=== PATIENT | male | born 1985 ===

== ENCOUNTER 2023-03-04 16:42 | Emergency (ER) | payer MEDICAID ==
[~2023-03-04] VITALS: Ht 167.6 cm; Wt 61.0 kg
[2023-03-04 17:34] LABS: BASOPHILS # (AUTO) 0.1 X10'3 (0-0.2); BASOPHILS % (AUTO) 0.9 % (0-1); EOSINOPHILS # (AUTO) 0.3 X10'3 (0-0.9); EOSINOPHILS % (AUTO) 3.3 % (0-6); HEMATOCRIT 45.7 % (42.0-52.0); HEMOGLOBIN 15.7 g/dl (14.0-17.9); LYMPHOCYTES # (AUTO) 2.5 X10'3 (1.1-4.8); LYMPHOCYTES % (AUTO) 27.4 % (21-51); MEAN CORPUSCULAR HEMOGLOBIN 33.2 PG (27.0-31.0); MEAN CORPUSCULAR HGB CONC 34.3 g/dL (33.0-36.5); MEAN CORPUSCULAR VOLUME 96.9 FL (78-98); MEAN PLATELET VOLUME 8.1 FL (7.4-10.4); MONOCYTES # (AUTO) 1.3 X10'3 (0-0.9); MONOCYTES % (AUTO) 14.1 % (2-12); NEUTROPHILS # (AUTO) 4.9 X10'3 (1.8-7.7); NEUTROPHILS % (AUTO) 54.3 % (42-75); PLATELET COUNT 266 X10'3 (140-440); RED BLOOD COUNT 4.72 X10'6 (4.70-6.10); RED CELL DISTRIBUTION WIDTH 13.6 % (11.5-14.5)
[2023-03-04 17:41] LABS: ALANINE AMINOTRANSFERASE 95 U/L (12-78); ALBUMIN 4.2 G/DL (3.4-5.0); ALBUMIN/GLOBULIN RATIO 1.2 (1.1-1.5); ALKALINE PHOSPHATASE 62 IU/L (46-116); ANION GAP 9 (8-16); ASPARTATE AMINO TRANSFERASE 95 U/L (10-37); BILIRUBIN,TOTAL 2.5 MG/DL (0.1-1.0); BLOOD UREA NITROGEN 20 MG/DL (7-18); BUN/CREATININE RATIO 15.7 (10.0-20.0); CALCIUM 9.2 MG/DL (8.5-10.1); CHLORIDE 103 MMOL/L (99-107); CREATININE 1.27 MG/DL (0.60-1.10); GLUCOSE 90 MG/DL (70-104); POTASSIUM 3.4 MMOL/L (3.5-5.1); SODIUM 139 MMOL/L (135-145); TOTAL CARBON DIOXIDE 26.8 MMOL/L (24-32); TOTAL PROTEIN 7.8 G/DL (6.4-8.2); eGFR 63 ML/MIN
[2023-03-04 17:50] LABS: ETHANOL < 0.010 GM/DL (0.0-0.010)
[2023-03-04 19:18] LABS: URINE AMPHETAMINE SCREEN POSITIVE (Neg); URINE BARBITUATE SCREEN NEGATIVE (Neg); URINE BENZODIAZEPINES SCREEN NEGATIVE (Neg); URINE CANNABINOID SCREEN POSITIVE (Neg); URINE COCAINE SCREEN NEGATIVE (Neg); URINE METHADONE SCREEN NEGATIVE (Neg); URINE OPIATE SCREEN NEGATIVE (Neg); URINE PHENCYCLIDINE SCREEN NEGATIVE (Neg)
--- NOTE | 2023-03-04 19:30 | NUR ---
The patient moved to bed 20 from the main ER. He was cooperative with the move and is currently resting on his bed.
--- NOTE | 2023-03-04 20:00 | NUR ---
PACKET SENT TO [facility]
[2023-03-04] MEDS ORDERED: NO HOME MEDS (20:07)
--- NOTE | 2023-03-04 20:10 | NUR ---
One to one with the patient who has been sleeping on his bed. He stated that he was suicidal. He stated he has been homeless for several days after he left his in [facility]. He denies being on probation or parole. 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 He reports that he has a previous suicide attempt by cutting his throat.
--- NOTE | 2023-03-04 22:30 | NUR ---
The patient appears to be sleeping
--- NOTE | 2023-03-05 00:05 | NUR ---
The patient appears to be sleeping
--- NOTE | 2023-03-05 02:24 | NUR ---
The patient appears to be sleeping
--- NOTE | 2023-03-05 04:05 | NUR ---
The patient appears to be sleeping. He was up once to use the bathroom and had a snack
--- NOTE | 2023-03-05 05:25 | NUR ---
The patient appears to be sleeping
--- NOTE | 2023-03-05 06:48 | NUR ---
Patient sleeping on his left side. No distress observed. Continue to monitor.
--- NOTE | 2023-03-05 08:25 | NUR ---
Patient eating breakfast. No distress observed. Continue to monitor.
--- NOTE | 2023-03-05 09:02 | NUR ---
Patient states he is still feeling suicidal. Patient appears depressed. Patient feeling suicidal due to wanting a divorce and kicking him out of their home. Patient also bad about himself due to relapsing on drugs. Continue to monitor.
--- NOTE | 2023-03-05 10:35 | NUR ---
Rebecca HICKMAN, evaluating patient. No distress observed. Continue to monitor.
--- NOTE | 2023-03-05 12:16 | NUR ---
Patient eating lunch. No distress observed. Continue to monitor.
--- NOTE | 2023-03-05 14:06 | NUR ---
Patient sleeping. No distress observed. Continue to monitor.
--- NOTE | 2023-03-05 14:35 | NUR ---
Patient has slight wheezing throughout all lung pleitez. Patient in no distress. Patient states HX of Asthma. Okay per Dr Banegas to order albuterol neb. Continue to monitor.
[2023-03-05] MEDS ORDERED: albuterol 2.5 MG/3 ML nebule NEB PRN (15:00)
--- NOTE | 2023-03-05 15:04 | NUR ---
RN ordered EKG for possible admission to [facility]. Patient does not have chest pain/SOB.
--- NOTE | 2023-03-05 17:11 | NUR ---
Patient laying in bed awake. No distress observed. Continue to monitor.
[2023-03-05] MEDS ORDERED: ziprasidone 20mg capsule PO ONE (18:45)
--- NOTE | 2023-03-05 18:45 | NUR ---
The patient has been resting on his bed. He is quiet, withdrawn but cooperative. He reports feeling very depressed "on a scale of one to ten I'm a ten" He continues to be suicidal and is also having auditory hallucinations to harm himself. He stated that during dinner he had to stop using his fork because of the voices. He was made aware of the plan of care and that placement is being sought for him.
--- NOTE | 2023-03-05 20:38 | NUR ---
The patient appears to be sleeping
--- NOTE | 2023-03-05 22:49 | NUR ---
The patient appears to be sleeping
--- NOTE | 2023-03-06 00:06 | NUR ---
The patient appears to be sleeping
--- NOTE | 2023-03-06 01:24 | NUR ---
The patient appears to be sleeping
--- NOTE | 2023-03-06 03:27 | NUR ---
The patient appears to be sleeping
--- NOTE | 2023-03-06 05:07 | NUR ---
The patient appears to be sleeping
--- NOTE | 2023-03-06 06:41 | NUR ---
Patient sleeping. No distress observed. Continue to monitor.
--- NOTE | 2023-03-06 08:23 | NUR ---
Patient eating breakfast. No distress observed. Continue to monitor.
[2023-03-06] MEDS ORDERED: acetaminophen 325mg tablet PO PRN (08:25)
[2023-03-06] MEDS: ziprasidone 20mg capsule PO SCH ×2 (08:51→20:06)
--- NOTE | 2023-03-06 09:30 | NUR ---
Patient eating a snack. No distress observed. Continue to monitor.
--- NOTE | 2023-03-06 11:14 | NUR ---
Patient sleeping. No distress observed. Continue to monitor.
[2023-03-06 11:59] LABS: CLARITY,URINE CLEAR (Clear); COLOR,URINE YELLOW (Yellow); GLUCOSE, URINE NEGATIVE (Neg); KETONES,URINE NEGATIVE (Neg); LEUKOCYTE ESTERASE ,URINE NEGATIVE (Neg); NITRITES, URINE NEGATIVE (Neg); OCCULT BLOOD,URINE NEGATIVE (Neg); PROTEIN,URINE NEGATIVE (Neg); UA COLLECTION TYPE CLN CATCH MIDSTREAM
--- NOTE | 2023-03-06 12:25 | NUR ---
Patient eating lunch. No distress observed. Continue to monitor.
--- NOTE | 2023-03-06 14:21 | NUR ---
Pt is sleeping on his left side. RR even and unlabored.
--- NOTE | 2023-03-06 16:26 | NUR ---
Patient eating crackers. No distress observed. Continue to monitor.
--- NOTE | 2023-03-06 16:54 | NUR ---
P/U TO [facility] ON 03/07 1145. CALL REPORT PRIOR TO P/U [phone] EXT 1
--- NOTE | 2023-03-06 19:00 | NUR ---
The patient is resting on his bed. He is quiet and withdrawn. He reports continued command AH telling him to harm himself. He reports continued suicidal thoughts but that they are less intense. He denies side effects to medications.
--- NOTE | 2023-03-06 21:20 | NUR ---
The patient appears to be sleeping
--- NOTE | 2023-03-06 23:11 | NUR ---
The patient appears to be sleeping
--- NOTE | 2023-03-07 01:01 | NUR ---
The patient appears to be sleeping
--- NOTE | 2023-03-07 02:37 | NUR ---
The patient appears to be sleeping
--- NOTE | 2023-03-07 03:36 | NUR ---
The patient appears to be sleeping
--- NOTE | 2023-03-07 05:04 | NUR ---
The patient appears to be sleeping.
--- NOTE | 2023-03-07 06:30 | NUR ---
Received pt. sleeping in bed, he awoke to use the bathroom and was able to do so independently, then returned to bed.
--- NOTE | 2023-03-07 08:30 | NUR ---
Pt. is sitting up in bed eating at this time.
[2023-03-07] MEDS: ziprasidone 20mg capsule PO SCH (08:55)
--- NOTE | 2023-03-07 09:00 | NUR ---
Pt. was compliant with his morning medication and 1:1 was completed at bedside. Pt continues to report S/I, however denies any current plan. Pt. also endorses command A/GARCIA. Pt. states with a blunted affect, "I'm doing better than I was." He is within line of sight of the nurse's station.
--- NOTE | 2023-03-07 10:29 | NUR ---
Breaking RN. Pt. awake and resting in bed. Pt in no apparent distress.
--- NOTE | 2023-03-07 10:48 | NUR ---
Pt. appears to be sleeping at this time, rr are even and unlabored.
--- NOTE | 2023-03-07 11:56 | NUR ---
Discharge Note: Pt. was transferred of the unit to [facility] accompanied by the [facility] transport driver and security. Pt's belongings were inventoried and returned to him. This senior copywriter reviewed discharge instructions with pt. and he reported understanding. This senior copywriter attempted to call and give report to nursing staff at [facility], but was unable to directly speak to anyone and got the answering machine. This senior copywriter left a message containing her name and direct phone number.
[2023-03-07 12:12] VITALS: BP 102/70
== END 2023-03-07 12:17 ==
LOC: ER 16:43
DX: R45.851 Suicidal ideations (principal); Z20.822 Contact with and (suspected) exposure to COVID-19; F19.10 Other psychoactive substance abuse, uncomplicated; F15.10 Other stimulant abuse, uncomplicated; Z88.6 Allergy status to analgesic agent; Z79.899 Other long term (current) drug therapy
CPT/HCPCS: 36415; 80053; 80305; 80320; 81003; 84443; 85025; 87811; 99285